=== PATIENT | male | born 2005 | race Caucasian/White ===

== ENCOUNTER 2024-07-03 16:35 | Emergency (ER) | payer BC ==
[2024-07-03] MEDS ORDERED: Ketorolac Tromethamine 30 MG (1 mL) VIAL ONE (18:57)
== END 2024-07-03 21:28 | disposition home or self-care (01) ==
LOC: CSHERS 16:35
DX: M54.50 Low back pain, unspecified (principal); V43.52XA Car driver injured in collision with other type car in traffic accident, initial encounter; W22.11XA Striking against or struck by driver side automobile airbag, initial encounter
CPT/HCPCS: 72100; 96372; J1885